=== PATIENT | female | born 1935 | race Caucasian/White ===

== ENCOUNTER → 2022-08-29 14:17 | Outpatient (CLI) | payer MEDICARE, SELFPAY ==
--- NOTE | 2022-08-29 | DI.RAD.S_ITS ---
PROCEDURE: XR KNEE RT 3V INDICATIONS: Pain in right knee TECHNIQUE: 3 views of the knee were acquired. COMPARISON: None. FINDINGS: Bones: No acute fractures or dislocations. No suspicious bony lesions. Soft tissues: Moderate joint effusion. No suspicious soft tissue calcifications. IMPRESSION: Moderate joint effusion. No acute osseous abnormality. If the symptoms persist, consider cross sectional imaging such as MRI or CT for further assessment. Approved by: Johan Josue M.D. on 08/29/2022 at 15:19
--- NOTE | 2022-08-29 | DI.RAD.S_ITS ---
PROCEDURE: XR KNEE LT 3V INDICATIONS: Pain in right knee TECHNIQUE: 3 views of the knee were acquired. COMPARISON: None. FINDINGS: Bones: No acute fractures or dislocations. No suspicious bony lesions. Soft tissues: No joint effusion. No suspicious soft tissue calcifications. IMPRESSION: No acute osseous abnormality. If the symptoms persist, consider cross sectional imaging such as MRI or CT for further assessment. Approved by: Johan Josue M.D. on 08/29/2022 at 15:18
== END ==
PROVIDERS: PCP Physician Assistant; Referring Provider Physician Assistant; Visit Provider Physician Assistant
DX: M85.852 Other specified disorders of bone density and structure, left thigh (principal); M25.561 Pain in right knee; G89.29 Other chronic pain; M25.461 Effusion, right knee; Z13.820 Encounter for screening for osteoporosis; Z78.0 Asymptomatic menopausal state; Z90.710 Acquired absence of both cervix and uterus
CPT/HCPCS: 73562; 77080

== ENCOUNTER → 2023-01-14 15:11 | Outpatient (CLI) | payer MEDICARE, SELFPAY ==
--- NOTE | 2023-01-14 15:44 | DI.MRI.S_ITS ---
PROCEDURE: MR LUMBAR SPINE WO CON INDICATIONS: Spinal stenosis, lumbar region with neurogenic claudication TECHNIQUE: Noncontrast sagittal T1 spin echo and T2 fast echo, sagittal STIR, and T2 fast spin echo through the lumbar spine. In cases with scoliosis, additional coronal T2 fast spin echo may be performed. COMPARISON: None. FINDINGS: Image quality: Excellent. Alignment and Curvature: There is trace L2 on L3 retrolisthesis. Bone Marrow: Marrow is of normal overall signal. No acute vertebral body compression fractures. A chronic appearing superior L2 endplate deformity is noted. No associated marrow edema. Spinal Cord: Conus medullaris terminates at the L1 level. Visualized cord demonstrates normal signal and size. Paraspinous Soft Tissues: No paravertebral masses. T12-L1: Normal appearance. L1-L2: Mild disc desiccation and height loss. Broad-based disc bulge. Superior L2 endplate compression deformity. No canal stenosis. Mild facet ligamentum flavum hypertrophy. No foraminal stenosis. L2-L3: Moderate disc desiccation and height loss. Broad-based disc bulge. Mild facet ligamentum flavum hypertrophy. No canal stenosis. Mild bilateral foraminal stenosis. L3-L4: Moderate disc desiccation and height loss. Broad-based disc bulge. Severe facet and ligamentum flavum hypertrophy. No canal stenosis. Mild bilateral foraminal stenosis. L4-L5: Moderate disc desiccation and height loss. Broad-based disc bulge. Severe facet ligamentum flavum hypertrophy. No canal stenosis. Mild bilateral foraminal stenosis. L5-S1: Mild disc desiccation and height loss. Broad-based disc bulge. Mild facet sclerosis. No canal stenosis. Mild bilateral foraminal stenosis. IMPRESSION: 1. Mild to moderate disc desiccation and height loss throughout the lumbar spine. 2. Broad-based disc bulges and facet and ligamentum flavum hypertrophy. No significant canal stenosis of the lumbar spine. 3. Diffuse mild bilateral foraminal stenosis of the lumbar spine. Dictated by: Valery Clemente M.D. on 01/14/2023 at 16:59 Approved by: Valery Clemente M.D. on 01/14/2023 at 17:02
== END ==
PROVIDERS: PCP Physician Assistant; Referring Provider Orthopaedic Surgery; Visit Provider Orthopaedic Surgery
DX: M48.062 Spinal stenosis, lumbar region with neurogenic claudication (principal); M48.07 Spinal stenosis, lumbosacral region; M51.36 Other intervertebral disc degeneration, lumbar region; M51.37 Other intervertebral disc degeneration, lumbosacral region
CPT/HCPCS: 72148

== ENCOUNTER → 2023-04-02 15:14 | Outpatient (CLI) | payer MEDICARE, SELFPAY ==
--- NOTE | 2023-04-02 | DI.MRI.S_ITS ---
PROCEDURE: MR KNEE RT WO CON INDICATIONS: Unilateral primary osteoarthritis, right knee TECHNIQUE: Noncontrast sagittal PD fast spin echo and T2 fast spin echo with fat saturation, sagittal 3-D FLASH with fat saturation; coronal T1 spin echo and PD fast spin echo with fat saturation, and axial PD fast spin echo with fat saturation through the knee. COMPARISON: [facility] [place], CR, XR KNEE 4+ VIEWS RIGHT, 03/20/2023, 15:20. FINDINGS: Image quality: Excellent. Anterior Cruciate Ligament: Mild mucoid degeneration of the anterior cruciate ligament. The bulk of the ligament fibers are intact. Posterior Cruciate Ligament: Intact. Medial Collateral Ligament: Intact. Lateral Collateral Ligament: Intact. Medial Meniscus: Horizontal oblique tearing of the posterior horn and body of the medial meniscus extending to the inner third of the tibial articular surface. Findings are superimposed on mild chronic intrasubstance degeneration. Lateral Meniscus: Complex tearing of the lateral meniscus with a shallow radial component at the meniscal body as well as a vertical longitudinal component near the anterior root attachment and mild extrusion of the meniscal body beyond the femorotibial joint line. Medial and Lateral Tendons: The semimembranosus tendon insertions and meniscocapsular junction appear intact. Visualized portions of the pes anserinus tendons appear normal. No abnormal bursal fluid. The long and short heads of the biceps femoris tendon appear intact. The popliteus tendon appears intact. No signs of posterolateral corner injury. Iliotibial band appears normal. Anterior Structures: Mild patella christopher. The quadriceps and patellar tendons appear intact. No patellar subluxation. No femoral trochlear dysplasia or ventral trochlear prominence. No edema in the infrapatellar fat pad. Bones: No acute trabecular bone injury or fracture. Chronic traction cystic changes versus intraosseous ganglion is seen in the central portion of the tibial plateau. In the anterior central tibial plateau there is mild osseous edema of the may be related to traction from the anterior cruciate ligament insertion or anterior root attachments of the menisci Medial Femorotibial Cartilage: High-grade cartilage loss is seen in the central weight-bearing portion of the medial femoral condyle. Lateral Femorotibial Cartilage: Full-thickness cartilage loss is seen in the central to posterior weight-bearing portion of the lateral femoral condyle and lateral tibial plateau with subchondral edema and subchondral cystic changes. Patellofemoral Cartilage: Deep cartilage fissuring and partial-thickness cartilage irregularity are seen in the anterior compartment. Soft Tissues: A small amount of joint fluid is present. Small medial popliteal cyst. The musculature surrounding the knee is normal in bulk. IMPRESSION: 1. 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 Grade 3 chondromalacia is seen in the medial femorotibial compartment and there is deep cartilage fissuring and grade 2 chondromalacia in the anterior compartment. 2. Complex tearing of the lateral meniscus with shallow radial component at the meniscal body and a vertical longitudinal component at the anterior root attachment with mild extrusion of the meniscal body. 3. Horizontal oblique tearing of the posterior horn and body of the medial meniscus extending to the inner third of the tibial articular surface. 4. Mild mucoid degeneration of the anterior cruciate ligament. 5. Mild patella christopher. 6. Small joint effusion. Small medial popliteal cyst. Approved by: Johan Josue M.D. on 04/03/2023 at 9:28
== END ==
PROVIDERS: PCP Physician Assistant; Referring Provider Orthopaedic Surgery; Visit Provider Orthopaedic Surgery
DX: S83.271A Complex tear of lateral meniscus, current injury, right knee, initial encounter (principal); S83.241A Other tear of medial meniscus, current injury, right knee, initial encounter; M17.11 Unilateral primary osteoarthritis, right knee; M94.261 Chondromalacia, right knee; M22.8X1 Other disorders of patella, right knee; M25.461 Effusion, right knee; M71.21 Synovial cyst of popliteal space [Baker], right knee
CPT/HCPCS: 73721

== ENCOUNTER → 2023-04-30 11:21 | Outpatient (CLI) | payer MEDICARE, SELFPAY ==
[2023-04-30 12:45] LABS: Add Manual Diff / Slide Review NO; Basophils Absolute Auto 100 /uL (0-100); Basophils Percent Auto 0.5 % (0-2); Eosinophils Absolute Auto 100 /uL (0-450); Eosinophils Percent Auto 0.7 % (2-4); Hemoglobin 13.3 g/dL (12.0-16.0); Lymphocytes Absolute Auto 2700 /uL (1100-4500); Lymphocytes Percent Auto 25.2 % (25-40); Mean Corpuscular HGB Conc 33.3 % (30-36); Mean Corpuscular Hemoglobin 30.4 PG (26-34); Mean Corpuscular Volume 91.2 fL (80-100); Monocytes Absolute Auto 700 /uL (0-900); Neutrophils Absolute Auto 7100 /uL (1500-7000); Neutrophils Percent Auto 66.6 % (50-75); Platelet Count 305 X10^3/uL (150-400); Red Blood Cell Count 4.39 X10^6/uL (4.0-5.2); Red Cell Distribution Width 13.9 % (11.6-14.8); White Blood Cell Count 10.7 X10^3/uL (4.5-11.0)
[2023-04-30 13:39] LABS: Alanine Aminotransferase 13 IU/L (<35); Albumin 4.1 g/dL (3.5-5.0); Albumin Globulin Ratio 1.6 (1.0-2.8); Alkaline Phosphatase 69 U/L (38-126); Aspartate Aminotransferase 26 IU/L (14-36); BUN Creatinine Ratio 19.5 (6-22); Blood Urea Nitrogen 16 mg/dL (7-17); Calcium 9.4 mg/dL (8.4-10.2); Carbon Dioxide 27 mmol/L (22-32); Chloride 98 mmol/L (98-107); Estimated Glomerular Filt Rate > 60 mL/min (>60); Globulin 2.6 g/dL (1.7-4.1); Glucose 80 mg/dL (80-110); HEMOLYSIS < 15 (0-50); Potassium 3.9 mmol/L (3.4-5.1); Sodium 134 mmol/L (137-145); Total Protein 6.7 g/dL (6.3-8.2)
[2023-04-30 14:06] LABS: TSH w/ Reflex to FT4 2.24 uIU/mL (0.47-4.68)
== END ==
PROVIDERS: PCP Family Medicine; Referring Provider Family Medicine; Visit Provider Family Medicine
DX: Z00.00 Encounter for general adult medical examination without abnormal findings (principal)
CPT/HCPCS: 36415; 80053; 84443; 85025

== ENCOUNTER → 2023-05-19 13:57 | Outpatient (CLI) | payer MEDICARE, SELFPAY ==
--- NOTE | 2023-05-19 13:58 | DI.MG.S_ITS ---
BILATERAL DIGITAL SCREENING MAMMOGRAM 3D/2D WITH CAD: 05/19/2023 CLINICAL: Routine screening. No prior exams were available for comparison. Both breasts are heterogeneously dense, which may obscure small masses (category c / 51-75% glandular tissue). Current study was also evaluated with a Computer Aided Detection (CAD) system. There is an asymmetry in the right breast posterior depth central to the nipple seen on the mediolateral oblique view only. There is a focal asymmetry in the left breast at 10 o'clock anterior depth. No other significant masses or calcifications are seen in either breast. IMPRESSION: INCOMPLETE: NEEDS ADDITIONAL IMAGING EVALUATION The asymmetry in the right breast posterior depth central to the nipple seen on the mediolateral oblique view only is indeterminate. Additional views with possible ultrasound are recommended. The focal asymmetry in the left breast at 10 o'clock anterior depth is indeterminate. Additional views with possible ultrasound are recommended. This exam was interpreted at Station ID: [id number]. NOTE: For mammograms, a report in lay terms will be sent to the patient. Approximately 15% of breast malignancies will not be visualized mammographically. In the management of a palpable breast mass, a negative mammogram must not discourage biopsy of a clinically suspicious lesion. Electronically Signed By: Valery flannery/:05/19/2023 16:13:30 letter sent: Additional Imaging Needed ACR BI-RADS Category 0: Incomplete 3340F
== END ==
PROVIDERS: PCP Family Medicine; Referring Provider Family Medicine; Visit Provider Family Medicine
DX: Z12.31 Encounter for screening mammogram for malignant neoplasm of breast (principal)
CPT/HCPCS: 77063; 77067

== ENCOUNTER → 2023-06-11 13:25 | Outpatient (CLI) | payer MEDICARE, SELFPAY ==
--- NOTE | 2023-06-11 13:26 | DI.MG.S_ITS ---
BILATERAL DIGITAL DIAGNOSTIC MAMMOGRAM 3D/2D WITH ADDITIONAL VIEWS: 06/11/2023 CLINICAL: Additional evaluation requested from prior study. Comparison is made to exam dated: 05/19/2023 mammogram - [facility]. Both breasts are heterogeneously dense, which may obscure small masses (category c / 51-75% glandular tissue). The benign asymmetry in the right breast posterior depth central to the nipple seen on the mediolateral oblique view only is no longer seen. This is not seen in additional views. The benign focal asymmetry in the left breast at 10 o'clock anterior depth is no longer seen. This is not seen in additional views. No other significant masses or calcifications are seen in either breast. IMPRESSION: BENIGN There is no mammographic evidence of malignancy. Return to annual mammogram screening schedule is recommended. This exam was interpreted at Station ID: [id number]. NOTE: For mammograms, a report in lay terms will be sent to the patient. Approximately 15% of breast malignancies will not be visualized mammographically. In the management of a palpable breast mass, a negative mammogram must not discourage biopsy of a clinically suspicious lesion. Electronically Signed By: Roberto Smith M.D. acr/:06/11/2023 14:14:27 letter sent: Normal Exam ACR BI-RADS Category 2: Benign Finding(s) 3342F
== END ==
PROVIDERS: PCP Family Medicine; Referring Provider Family Medicine; Visit Provider Family Medicine
DX: Z12.39 Encounter for other screening for malignant neoplasm of breast (principal); R92.8 Other abnormal and inconclusive findings on diagnostic imaging of breast
CPT/HCPCS: 77066; G0279

== ENCOUNTER 2023-10-30 09:50 | Day surgery (SDC) | payer MEDICARE, SELFPAY ==
--- NOTE | 2023-10-30 | PATH_ITS ---
[facility] Accession Number: [id number] No. of containers..01 Tissue . 01 Material submitted: . rectum - RECTAL MASS, BIOPSY . 01 Diagnosis: RECTAL MASS, BIOPSY: Inflammatory cloacogenic polyp. No dysplasia or malignancy identified. See comment. . Specimen Comments: The changes are consistent with an inflammatory cloacogenic polyp, a term used to describe mucosal prolapse polyps involving the anorectal junction. [facility] 11/02/2023 1533 Local . 01 Electronically signed: . Taz Glynn MD, Pathologist NPI- [id number] . 01 Gross description: . The specimen is received in formalin, labeled with the patient's name, , and rectal mass, and consists of a cano soft tissue fragment measuring 3.4 x 1.2 x 1.0 cm. The margin is inked blue. The specimen is serially sectioned and submitted entirely in cassettes A1-A3. ([id number]) /[facility] 11/02/2023 1533 Local . 01 Microscopic: . Anorectal squamocolumnar junctional mucosa with hyperplasia of the glandular epithelium and distortion of the crypt architecture, and adjoining squamous mucosa with no evidence of dysplasia. The muscularis mucosa is hyperplastic and disorganized, and bundles of smooth muscle and collagen extend into the lamina propria around the crypts. There is focal erosion of the epithelial surface, with reactive epithelial changes. No dysplasia or malignancy is seen. . 01 Pathologist provided ICD-10: K62.3 . 01 CPT . 572974 Specimen Comment: A courtesy copy of this report has been sent to [phone] Performed at: 01 [facility] [address] [place] [address], [place], [place] [id number] MD Taz Glynn MD Phone: [phone]
[2023-10-30 10:22] VITALS: BP 178/75; PULSE 92; RESP 16; TEMP 36.3; O2SAT 98; BMI 22.8
[2023-10-30] MEDS: LACTATED RINGERS 1,000 ML 21 ML IV (10:26)
--- NOTE | 2023-10-30 11:02 | PM.PREOP ---
Pre-operative Note Interval Note History & Physical reviewed/Exam performed by Physician: Yes Changes to H&P: No
--- NOTE | 2023-10-30 11:21 | SUR.OPER ---
Patient is lying on her side on a gurney with her head supported with a pillow, bony prominences padded.
[2023-10-30] MEDS: BUPIVACAINE 0.25% (PF) 30 ML, EPINEPHrine 0.15 MG INJ (11:30)
[2023-10-30] MEDS: LIDOCAINE 2% (GLYDO) 6 ML GEL TOP (11:37)
--- NOTE | 2023-10-30 11:43 | PM.OP.1 ---
Operative Date/Time/Diagnoses Date of procedure: 10/30/23 Time of procedure: 11:43 Pre-op diagnosis: Rectal mass Post-op diagnosis: same Procedure & Clinicians Procedure: Excision of rectal mass Same procedure as scheduled: Yes Indications: 88-year-old woman incontinence found to have a prolapsing rectal mass taken to the operating for examination under anesthesia. Surgeon: Gallito Hamlin Click Yes if Unassisted: Yes Anesthesia Type: MAC +/- Operative Notes Findings: 2 cm pedunculated prolapsing rectal polyp/mass Specimen(s): other (Rectal mass) Estimated Blood Loss (mL): 20 Procedure in detail: Patient was brought to the operating room placed supine on the table. Monitored anesthesia care was induced. Patient was placed into the left lateral decubitus position. Time-out was performed. Rectal examination demonstrates a 2 cm pedunculated slightly ulcerated rectal mass which spontaneously prolapses out of the rectum. It does not appear to be hemorrhoid nor anal cancer. 30 mL of 0.25% bupivacaine with epinephrine was infiltrated into the mucosa. The polyp was excised using electrocautery. She tolerated the procedure well surgery foam was placed into the anal canal she was transferred to recovery in stable condition. Complications: none Post-operative Condition: stable Disposition: same day surgery
[2023-10-30 11:45] VITALS: BP 140/73; PULSE 66; RESP 13; TEMP 36.4; O2SAT 98
[2023-10-30 11:51] VITALS: BP 140/73; PULSE 68; RESP 12; O2SAT 99
[2023-10-30 11:56] VITALS: BP 134/71; PULSE 71; RESP 20; O2SAT 98
[2023-10-30 12:15] VITALS: BP 152/74; PULSE 78; RESP 16; TEMP 36.4; O2SAT 99
== END 2023-10-30 12:21 | disposition home or self-care (01) ==
PROVIDERS: PCP Family Medicine; Referring Provider Surgery; Visit Provider Surgery
PROC: (CPT 45990; principal; 2023-10-30 11:15)
DX: R15.9 Full incontinence of feces (principal); K62.1 Rectal polyp
CPT/HCPCS: 45171; J0171; J1100; J2250; J2405; J2704; J3010; J3490

== ENCOUNTER → 2024-06-10 14:09 | Outpatient (CLI) | payer MEDICARE, SELFPAY ==
--- NOTE | 2024-06-10 14:10 | DI.MG.S_ITS ---
BILATERAL DIGITAL SCREENING MAMMOGRAM 3D/2D WITH CAD: 06/10/2024 CLINICAL: Routine screening. Comparison is made to exams dated: 06/11/2023 mammogram and 05/19/2023 mammogram - [facility]. 11/16/2021, 10/20/2020. The breasts are heterogeneously dense, which may obscure small masses (category c / 51-75% glandular tissue). Current study was also evaluated with a Computer Aided Detection (CAD) system. No significant masses, calcifications, or other findings are seen in either breast. There has been no significant interval change. IMPRESSION: NEGATIVE There is no mammographic evidence of malignancy. A 1 year screening mammogram is recommended. This exam was interpreted at Station ID: [id number]. NOTE: For mammograms, a report in lay terms will be sent to the patient. Approximately 15% of breast malignancies will not be visualized mammographically. In the management of a palpable breast mass, a negative mammogram must not discourage biopsy of a clinically suspicious lesion. Electronically Signed By: Chidi Cortes M.D. slc/:06/10/2024 15:55:40 letter sent: Normal Exam ACR BI-RADS Category 1: Negative
== END ==
PROVIDERS: PCP Family Medicine; Referring Provider Family Medicine; Visit Provider Family Medicine
DX: Z12.31 Encounter for screening mammogram for malignant neoplasm of breast (principal); R92.333 Mammographic heterogeneous density, bilateral breasts
CPT/HCPCS: 77063; 77067

== ENCOUNTER → 2025-05-24 12:01 | Outpatient (CLI) | payer MEDICARE, SELFPAY ==
[2025-05-24 12:30] LABS: Add Manual Diff / Slide Review NO; Hematocrit 39.6 % (36-46); Hemoglobin 13.4 g/dL (12.0-16.0); Lymphocytes Absolute Auto 3200 /uL (1100-4500); Mean Corpuscular HGB Conc 33.7 % (30-36); Mean Corpuscular Hemoglobin 30.8 PG (26-34); Mean Corpuscular Volume 91.2 fL (80-100); Platelet Count 319 X10^3/uL (150-400)
[2025-05-24 12:47] LABS: Alanine Aminotransferase 14 IU/L (<35); Albumin 4.4 g/dL (3.5-5.0); Albumin Globulin Ratio 1.8 (1.0-2.8); Alkaline Phosphatase 76 U/L (38-126); Blood Urea Nitrogen 18 mg/dL (7-17); Calcium 9.5 mg/dL (8.4-10.2); Carbon Dioxide 24 mmol/L (22-32); Chloride 102 mmol/L (98-107); Estimated Glomerular Filt Rate > 60 mL/min (>60); Globulin 2.5 g/dL (1.7-4.1); Glucose 87 mg/dL (70-99); HEMOLYSIS < 15 (0-50); Potassium 3.8 mmol/L (3.4-5.1); Sodium 135 mmol/L (137-145); Total Protein 6.9 g/dL (6.3-8.2)
[2025-05-24 13:05] LABS: Free T4, Direct Thyroxine 1.25 ng/dL (0.78-2.19)
[2025-05-24 13:19] LABS: Thyroid Stimulating Hormone 2.81 uIU/mL (0.47-4.68)
[2025-05-24 13:38] LABS: Vitamin B12 668 pg/mL (239-931)
== END ==
PROVIDERS: PCP Family Medicine; Referring Provider Family Medicine; Visit Provider Family Medicine
DX: M85.80 Other specified disorders of bone density and structure, unspecified site (principal); E03.9 Hypothyroidism, unspecified; Z00.00 Encounter for general adult medical examination without abnormal findings; C44.90 Unspecified malignant neoplasm of skin, unspecified
CPT/HCPCS: 36415; 80053; 82607; 84439; 84443; 85025

== ENCOUNTER → 2025-07-25 14:29 | Outpatient (CLI) | payer MEDICARE, SELFPAY ==
--- NOTE | 2025-07-25 14:31 | DI.MG.S_ITS ---
MM screening mammo BI: 07/25/2025. BI-RADS: 0 CLINICAL: 89-year old female for bilateral screening mammogram. No Tyrer-Cuzick risk score calculation due to patient's age being over 85 years old. No personal or first-degree family history of breast cancer. PRIOR EXAMS 06/10/2024, 06/11/2023, 05/19/2023. MAMMOGRAPHY TECHNIQUE: 2D and 3D (tomosynthesis) digital mammographic views obtained, with additional images as needed for full coverage. Current study was also evaluated with a Computer Aided Detection (CAD) system. DENSITY C. The breasts are heterogeneously dense, which may obscure small masses. MAMMOGRAPHY FINDINGS Right: MLO only, Axillary Tail: Asymmetry needing additional imaging evaluation. Left: No suspicious mass, asymmetry, microcalcification, or other abnormality seen. IMPRESSION: Right (Asymmetry): MLO only, Axillary Tail * Incomplete - asymmetry needing additional imaging evaluation. Left * No evidence of malignancy. RECOMMENDATIONS Right: MLO only, Axillary Tail * Further evaluation with diagnostic mammography and diagnostic ultrasound. Ultrasound to be performed only if needed. OVERALL ASSESSMENT CATEGORY BI-RADS-0: Incomplete - Need Additional Imaging Evaluation. ELECTRONICALLY SIGNED: Bhargav Alvarez M.D. on 07/26/2025 at 09:40:13 AM PT Interpreting Station ID: [id number]
== END ==
PROVIDERS: PCP Family Medicine; Referring Provider Family Medicine; Visit Provider Family Medicine
DX: Z12.31 Encounter for screening mammogram for malignant neoplasm of breast (principal); R92.333 Mammographic heterogeneous density, bilateral breasts
CPT/HCPCS: 77063; 77067

== ENCOUNTER → 2025-08-29 13:30 | Outpatient (CLI) | payer MEDICARE, SELFPAY ==
--- NOTE | 2025-08-29 13:31 | DI.MG.S_ITS ---
MM diagnostic mammo unilat Right, US breast RT limited: 08/29/2025 BI-RADS: 3 CLINICAL: 89-year old female for left diagnostic mammogram and right diagnostic breast ultrasound that is a recall from screening on 07/25/2025. No Tyrer-Cuzick risk score calculation due to patient's age being over 85 years old. No personal or first- degree family history of breast cancer. PRIOR EXAMS 07/25/2025, 06/10/2024, 06/11/2023, 05/19/2023. MAMMOGRAPHY TECHNIQUE: 2D and 3D (tomosynthesis) digital mammographic views obtained, with additional images as needed for full coverage. Current study was also evaluated with a Computer Aided Detection (CAD) system. ULTRASOUND TECHNIQUE Real-time coronel scale and color doppler imaging of the area of clinical interest was performed with image documentation. Right targeted breast ultrasound of the area of clinical interest and the axilla was performed with image documentation. DENSITY Right: C. The breast is heterogeneously dense, which may obscure small masses. MAMMOGRAPHY FINDINGS Right (finding-1): MLO only, Upper, Posterior depth, measuring 0.6cm: Correlating with findings on screening mammogram, there is an asymmetry seen only on one view. ULTRASOUND FINDINGS Right (finding-1): Upper at 12:00, 11 cm from nipple: There is no sonographic abnormality to account for imaging concern on mammography. Right: Axilla, measuring 2 x 0.7 x 1.3 cm: There is a normal-appearing lymph node. Doppler shows hilar vascularity. This is an incidental finding. IMPRESSION: Right (Asymmetry): MLO only, Upper, Posterior depth, measuring 0.6cm * Probably Benign. RECOMMENDATIONS Right: MLO only, Upper, Posterior depth * Six month followup with diagnostic mammography. COMMENTS: Findings and recommendations were conveyed to the patient during today's evaluation. OVERALL ASSESSMENT CATEGORY BI-RADS-3: Probably Benign. ELECTRONICALLY SIGNED: Jennifer Barrios M.D. on 08/29/2025 at 04:00:22 PM PT Interpreting Station ID: [id number]
== END ==
LOC: MAMMO 13:31
PROVIDERS: PCP Family Medicine; Referring Provider Family Medicine; Visit Provider Family Medicine
DX: R92.8 Other abnormal and inconclusive findings on diagnostic imaging of breast (principal); N64.89 Other specified disorders of breast; R92.331 Mammographic heterogeneous density, right breast
CPT/HCPCS: 76642; 77065; G0279